=== PATIENT | male | born 1995 | race Hispanic/Latino ===

== ENCOUNTER 2017-12-17 03:51 | Emergency (ER) | payer OTHER ==
[2017-12-17] MEDS ORDERED: NA CHLORIDE 0.9% 1,000 ML ONE (04:28)
[2017-12-17 04:44] LABS: Absolute Lymphocytes (CBC) 2.5 K/uL (0.7-4.9); Absolute Monocytes 0.7 K/uL (0.1-1.3); Absolute Neutrophil 5.8 K/uL (1.8-8.0); Basophils % 0.4 % (0-1.3); Eosinophils % 1.5 % (0-4.4); Hematocrit 44.1 % (39.6-49.0); Lymphocytes % 27.1 % (15.3-44.8); MCH 30.4 pg (27.0-35.0); MPV 9.2 fL (7.6-11.3); Monocytes % 7.3 % (3.3-12.3); RBC Red Blood Cell Count 5.01 M/uL (4.33-5.43)
[2017-12-17 05:04] LABS: Protime INR 1.11
[2017-12-17 05:05] LABS: Bicarbonate 28 mEq/L (21-31); Glucose Level 112 mg/dL (65-120); Potassium 3.1 mEq/L (3.6-5.0); Sodium Level 139 mEq/L (135-145)
[2017-12-17 05:11] LABS: ALT/SGPT 17 IU/L (10-60); AST/SGOT 29 IU/L (10-42); Albumin 4.4 g/dL (3.2-5.5); Alkaline Phosphatase 70 IU/L (42-121); BUN Blood Urea Nitrogen 9 mg/dL (6-20); Bilirubin Direct 0.1 mg/dL (0-0.2); Bilirubin Total 0.6 mg/dL (0.3-1.2); Protein, Total 7.1 g/dL (6.0-8.3)
[2017-12-17 05:24] LABS: Alcohol Serum/Plasma < 10 mg/dl
--- NOTE | 2017-12-17 05:50 | EDPHYS ---
Physician Documentation [facility] Name: Catracho Corrales Age: 22 yrs Sex: Male : 1995 Arrival Date: 12/17/2017 Time: 03:53 Bed 5 Private MD: ED Physician Jamar Piña HPI: 12/17 04:20 This 22 yrs old Male presents to ER via EMS with complaints of Drug Abuse, fouzia Anxiety. 04:20 The patient presents to the emergency department with anxiety, depression, suicide fouzia ideation. Onset: The symptoms/episode began/occurred this morning, today. Past psychiatric history: Prior diagnosis: addiction history, depression. Associated signs and symptoms: The patient has no apparent associated signs or symptoms. Severity of symptoms: At their worst the symptoms were mild in the emergency department the symptoms are unchanged. The patient has experienced similar episodes in the past, a few times. Historical: - Allergies: 03:56 PENICILLINS; bp - Home Meds: 03:56 None [Active]; bp - PMHx: 03:56 Asthma; bp - Immunization history:: Adult Immunizations up to date. - Social history:: Smoking status: Patient uses tobacco products, unknown amount. - Ebola Screening: : Patient negative for fever greater than or equal to 101.5 degrees Fahrenheit, and additional compatible Ebola Virus Disease symptoms Patient denies exposure to infectious person Patient denies travel to an Ebola-affected area in the 21 days before illness onset No symptoms or risks identified at this time. - Family history:: not pertinent. ROS: 04:20 Constitutional: Negative for fever, chills, and weight loss, Eyes: Negative for injury, fouzia pain, redness, and discharge, ENT: Negative for injury, pain, and discharge, Neck: Negative for injury, pain, and swelling, Cardiovascular: Negative for chest pain, palpitations, and edema, Respiratory: Negative for shortness of breath, cough, wheezing, and pleuritic chest pain, Abdomen/GI: Negative for abdominal pain, nausea, vomiting, diarrhea, and constipation, Back: Negative for injury and pain, : Negative for injury, bleeding, discharge, and swelling, MS/Extremity: Negative for injury and deformity, Skin: Negative for injury, rash, and discoloration, Neuro: Negative for headache, weakness, numbness, tingling, and seizure, Allergy/Immunology: Negative for hives, rash, and allergies, Endocrine: Negative for neck swelling, polydipsia, polyuria, polyphagia, and marked weight changes, Hematologic/Lymphatic: Negative for swollen nodes, abnormal bleeding, and unusual bruising. 04:20 Psych: Positive for anxiety, depression, suicidal ideation, Negative for auditory hallucinations. Exam: 04:20 Constitutional: This is a well developed, well nourished patient who is awake, alert, fouzia and in no acute distress. Head/Face: Normocephalic, atraumatic. Eyes: Pupils equal round and reactive to light, extra-ocular motions intact. Lids and lashes normal. Conjunctiva and sclera are non-icteric and not injected. Cornea within normal limits. Periorbital areas with no swelling, redness, or edema. ENT: Nares patent. No nasal discharge, no septal abnormalities noted. Tympanic membranes are normal and external auditory canals are clear. Oropharynx with no redness, swelling, or masses, exudates, or evidence of obstruction, uvula midline. Mucous membranes moist. Neck: Trachea midline, no thyromegaly or masses palpated, and no cervical lymphadenopathy. Supple, full range of motion without nuchal rigidity, or vertebral point tenderness. No Meningismus. Chest/axilla: Normal chest wall appearance and motion. Nontender with no deformity. No lesions are appreciated. Cardiovascular: Regular rate and rhythm with a normal S1 and S2. No gallops, murmurs, or rubs. Normal PMI, no JVD. No pulse deficits. Respiratory: Lungs have equal breath sounds bilaterally, clear to auscultation and percussion. No rales, rhonchi or wheezes noted. No increased work of breathing, no retractions or nasal flaring. Abdomen/GI: Soft, non-tender, with normal bowel sounds. No distension or tympany. No guarding or rebound. No evidence of tenderness throughout. Back: No spinal tenderness. No costovertebral tenderness. Full range of motion. Male : Normal genitalia with no discharge or lesions. Skin: Warm, dry with normal turgor. Normal color with no rashes, no lesions, and no evidence of cellulitis. MS/ Extremity: Pulses equal, no cyanosis. Neurovascular intact. Full, normal range of motion. Neuro: Awake and alert, GCS 15, oriented to person, place, time, and situation. Cranial nerves II-XII grossly intact. Motor strength 5/5 in all extremities. Sensory grossly intact. Cerebellar exam normal. Normal gait. 04:20 Psych: Exam negative for exam not indicated, patient is an infant, Behavior/mood is anxious, Affect is animated, Oriented to person, place, time, Patient has no thoughts/intents to harm self or others. Judgement / Insight is normal. Memory is normal. Vital Signs: 03:56 BP 131 / 72; Pulse 79; Resp 16; Temp 98; Pulse Ox 99% ; Weight 72.57 kg (R); bp 04:30 BP 131 / 96; Pulse 82; Resp 16; Pulse Ox 100% ; bp 05:00 BP 132 / 96; Pulse 86; Resp 16; Pulse Ox 100% ; bp 07:00 BP 129 / 89; Pulse 84; Resp 18; Temp 97.8; Pulse Ox 99% on R/A; ph 03:56 ARRIVAL VS bp MDM: 04:08 Patient medically screened. fouzia 04:25 Data reviewed: vital signs, nurses notes, lab test result(s). [facility] 07:24 Counseling: I had a detailed discussion with the patient and/or guardian regarding: [facility] personnel in to eval. 12/17 04:06 Order name: Acetaminophen; Complete Time: 05:46 bp 12/17 04:06 Order name: Basic Metabolic Panel; Complete Time: 05:46 bp 12/17 04:06 Order name: CBC with Diff; Complete Time: 05:46 bp 12/17 04:06 Order name: ETOH Level; Complete Time: 05:46 bp 12/17 04:06 Order name: Hepatic Function; Complete Time: 05:46 bp 12/17 04:06 Order name: PT-INR; Complete Time: 05:46 bp 02 04:06 Order name: Ptt, Activated; Complete Time: 05:46 bp 12/17 04:06 Order name: Salicylate; Complete Time: 06:32 bp 12/17 04:06 Order name: Urine Drug Screen; Complete Time: 09:15 bp 12/17 07:26 Order name: Chem 7 snw 12/17 07:26 Order name: Basic Metabolic Panel; Complete Time: 08:59 EDMS 12/17 08:43 Order name: Urine Dipstick--Ancillary (enter results); Complete Time: 09:34 em1 12/17 04:06 Order name: EKG; Complete Time: 04:06 bp 12/17 04:06 Order name: EKG - Nurse/Tech; Complete Time: 04:35 bp 12/17 04:06 Order name: IV Saline Lock; Complete Time: 04:35 bp 12/17 04:06 Order name: Labs collected and sent; Complete Time: 04:35 bp 12/17 04:06 Order name: Urine Dipstick-Ancillary (obtain specimen); Complete Time: 08:42 bp 12/17 05:50 Order name: PO challenge: juice please; Complete Time: 06:16 fouzia 12/17 08:43 Order name: Diet Regular; Complete Time: 08:44 hb Administered Medications: 04:36 Drug: NS 0.9% 1000 ml Route: IV; Rate: 1 bolus; Site: right forearm; bp 07:26 Follow up: Response: No adverse reaction; IV Status: Completed infusion ph 06:16 Drug: Potassium Effervescent Tablet 50 mEq Route: PO; bp 07:26 Follow up: Response: No adverse reaction ph 09:59 Drug: Valium 2 mg Route: IVP; Site: right antecubital; ph 10:00 Drug: Nicotine 21 mg/24 hr 1 patches {Note: APPLIED TO R UPPER ARM .} Route: ph Transdermal; Site: affected area; Disposition: 12/17/17 05:49 Transfer ordered to Psych Facility. Diagnosis are Major depressive disorder, recurrent, Abuse of non-psychoactive substances. - Reason for transfer: Higher level of care. - Accepting physician is to psych. - Condition is Stable. - Problem is new. - Symptoms have improved. Addendum: 12/19/2017 06:56 Co-signature as Attending Physician, Jamar Piña MD I agree with the assessment and c lewis plan of care. Signatures: Dispatcher [employer] Jamar Bey MD MD cha Therrien, Shelly, MOTOR VEHICLE EMISSIONS INSPECTOR-C MOTOR VEHICLE EMISSIONS INSPECTOR-Charline Teresa, RN RN Fab Walker, SANTOS RN bp Corrections: (The following items were deleted from the chart) 12/17 11:38 05:49 12/17/2017 05:49 Transfer ordered to Psych Facility. Diagnosis is Major ph depressive disorder, recurrent; Abuse of non-psychoactive substances. Reason for transfer: Higher level of care. Accepting physician is to psych. Condition is Stable. Problem is new. Symptoms have improved. fouzia
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
[2017-12-17] MEDS ORDERED: POTASSIUM 25 MEQ EFFERV TAB ONE (06:13)
--- NOTE | 2017-12-17 06:45 | EKG ---
Test Date: 2017-12-17 Test Time: 04:23:45 Health Commissioner: BP MEASUREMENT RESULTS: Intervals: Rate: 80 RI: 168 QRSD: 84 QT: 336 QTc: 387 [place]: P: 67 RI: 168 QRS: 54 T: 30 INTERPRETIVE STATEMENTS: Normal sinus rhythm Normal ECG No previous ECG available for comparison Electronically Signed On 12-17-17 06:45:00 CDT by Ritesh Fenton
[2017-12-17 08:57] LABS: Barbiturates NEGATIVE; Benzodiazepines NEGATIVE; Cocaine NEGATIVE; Opiates NEGATIVE; Phencyclidine NEGATIVE; THC Cannibis NEGATIVE
[2017-12-17 08:58] LABS: Potassium 3.5 mEq/L (3.6-5.0)
[2017-12-17 09:10] LABS: METHAMPHETAM POSITIVE (NEGATIVE)
[2017-12-17 09:15] LABS: Urine Blood NEGATIVE (NEG); Urine Glucose NEGATIVE (NEG); Urine Protein NEGATIVE (NEG); Urine Specific Gravity 1.015 (1.005-1.030)
[2017-12-17] MEDS ORDERED: DIAZEPAM 10 MG/2 ML INJ SYRINGE ONE (09:49)
[2017-12-17] MEDS ORDERED: NICOTINE 21 MG/PAT TD ONE (09:55)
== END 2017-12-17 11:38 ==
LOC: ER 03:51
DX: F55.8 Abuse of other non-psychoactive substances (principal); F41.9 Anxiety disorder, unspecified; R45.851 Suicidal ideations; Z88.0 Allergy status to penicillin; F17.200 Nicotine dependence, unspecified, uncomplicated
CPT/HCPCS: 36415; 80048; 80076; 80307; 80320; 80329; 81003; 85025; 85610; 85730; 93005; 96361; 96374; 99284; J3360; J7030